=== PATIENT | male | born 1990 | race Caucasian/White ===

== ENCOUNTER 2018-05-14 13:03 | Emergency (ER) | payer OTHER ==
[~2018-05-14] VITALS: Ht 185.4 cm; Wt 104.3 kg
[2018-05-14 13:28] LABS: ABSOLUTE BASOPHILS 0.1 thou/uL (0.0-0.2); ABSOLUTE EOSINOPHILS 0.1 thou/uL (0.0-0.7); ABSOLUTE MONOCYTES 0.5 thou/uL (0.0-1.2); ABSOLUTE NEUTROPHILS 3.3 thou/uL (1.6-8.1); BASOPHILS 0.8 %; EOSINOPHILS 1.9 %; HEMOGLOBIN 15.4 gm/dL (14.0-18.0); LYMPHOCYTES 33.6 %; MCH 29.9 pg (26.0-34.0); MCHC 34.3 g/dL (28.0-37.0); MCV 87.3 fL (80.0-100.0); MONOCYTES 8.7 %; MPV 7.9 fl. (7.2-11.1); NUCLEATED RBCS 0 /100WBC; PLATELET COUNT* 244 thou/uL (150-400); RBC 5.16 mil/uL (4.50-6.00); RDW-CV 13.4 % (10.5-14.5); WBC 5.9 thou/uL (4.0-11.0)
[2018-05-14 13:48] LABS: ALBUMIN 4.2 g/dL (3.4-5.0); ALKALINE PHOSPHATASE 52 U/L (46-116); ANION GAP 9 mmol/L (7-16); BUN 20 mg/dL (7-18); CALCIUM 9.4 mg/dL (8.5-10.1); CHLORIDE 104 mmol/L (98-107); CO2 29 mmol/L (21-32); CREATININE 1.4 mg/dL (0.6-1.3); GLUCOSE 90 mg/dL (70-99); POTASSIUM 3.6 mmol/L (3.5-5.1); SGOT 22 U/L (15-37); SGPT 43 U/L (30-65); SODIUM 142 mmol/L (136-145); TOTAL BILIRUBIN 0.6 mg/dL (<0.1-1.0); TOTAL PROTEIN 7.6 g/dL (6.4-8.2); TROPONIN-I LEVEL <0.06 ng/mL (<0.06)
[2018-05-14] MEDS ORDERED: OMEPRAZOLE20 M2 PO (14:16)
[2018-05-14 14:57] VITALS: BP 115/71
--- NOTE | 2018-05-15 13:48 | EKG ---
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
== END 2018-05-14 14:59 | disposition home or self-care (01) ==
LOC: M.ERS 13:03
PROVIDERS: Nurse Practitioner Psychiatric/Mental Health
DX: N28.9 Disorder of kidney and ureter, unspecified (principal); R07.89 Other chest pain; I10 Essential (primary) hypertension